=== PATIENT | male | born 1980 | race Caucasian/White ===

== ENCOUNTER 2025-03-30 16:40 | Emergency (ER) | payer BC, SELFPAY ==
[2025-03-30 16:45] VITALS: BP 122/74; PULSE 75; TEMP 36.7; O2SAT 97; BMI 27.1
[2025-03-30 17:04] LABS: Glucose Urine UA NEGATIVE (NEGATIVE)
[2025-03-30 17:13] LABS: Cast Seen? NONE SEEN #/LPF (NONE SEEN); Crystals Seen? None Seen #/HPF (None Seen)
[2025-03-30 17:14] LABS: Urine Culture Indicated NO
--- NOTE | 2025-03-30 17:28 | ED_ITS ---
HPI HPI - General Adult General Chief complaint: Back Pain/Injury Stated complaint: LOWER BACK PAIN Time Seen by Provider: 03/30/25 17:25 Source: patient Mode of arrival: walk-in History of Present Illness HPI narrative: 44-year-old male presents to the emergency department for lower back pain. Its bilateral and he has had it for 5 days. It started when he bent over to pick something up. He has a history of degenerative joints in his back and he states that was found on your x-rays a few years ago. It does not radiate into his leg. No weakness or numbness or dysuria or hematuria. Related Data Previous Rx's ?Medication ?Instructions ?Recorded ibuprofen 800 mg tablet 800 mg PO Q8H PRN pain #20 t abs 03/30/25 methocarbamol 750 mg tablet 750 mg PO Q8H #20 tabs 07/14 Allergies Allergy/AdvReac Type Severity Reaction Status Date / Time No Known Drug Allergies Allergy Verified 03/30/25 16:49 Opioid HPI Opioid Management Most Recent Opioid Data: Last Pain Scale 6 Today, 17:22 Review of Systems ROS Narrative A ten point review of systems is negative except as noted above. PFSH PFSH Social History Little interest or pleasure in doing things: not at all Feeling down, depressed, or hopeless: not at all Exam Narrative Exam Narrative: Nurses note and vital signs reviewed and patient is not hypoxic. General: The patient appears mildly uncomfortable. He is in no acute distress. Skin: Warm, dry, no pallor noted. There is no rash noted. Head: Normocephalic, atraumatic Eye: Normal conjunctiva, no drainage Ears, Nose, Mouth, and Throat: oral mucosa is moist. Nares patent. Cardiovascular: Regular Rate and Rhythm Respiratory: Patient is in no distress, no accessory muscle use, lungs are clear to auscultation, no wheezing, rales or rhonchi Back: No bruise or rash or focal area of tenderness to palpation GI: Soft and nontender Musculoskeletal: Motor strength intact in his lower extremities Neurological: A&O, normal speech Psychiatric: Cooperative Constitutional Vital Signs, click to edit/add: Last Vital Signs Temp 98.1 F 03/30/25 16:45 Pulse 75 03/30/25 16:45 Resp 16 03/30/25 16:45 BP 122/74 03/30/25 16:45 Pulse Ox 97 08/11/25 16:45 Course Vital Signs Vital signs: Vital Signs Temperature 98.1 F 03/30/25 16:45 Pulse Rate 75 03/30/25 16:45 Respiratory Rate 16 03/30/25 16:45 Blood Pressure 122/74 03/30/25 16:45 Pulse Oximetry 97 03/30/25 16:45 Temperature 98.1 F 03/30/25 16:45 Pulse Rate 75 03/30/25 16:45 Respiratory Rate 16 03/30/25 16:45 Blood Pressure 122/74 03/30/25 16:45 Pulse Oximetry 97 03/30/25 16:45 Medical Decision Making MDM Narrative Medical decision making narrative: Urinalysis is negative and the lumbar films show some degenerative changes. Findings were discussed with the patient. He was offered IM Toradol but does not want that and he was prescribed ibuprofen and Robaxin. Treatment diagnosis and follow-up were discussed with the patient. Differential Diagnosis Differential Diagnosis: Lumbar strain, degenerative disc disease, fracture Lab Data Lab results reviewed: Yes I reviewed the patient's lab results Labs: Lab Results 03/30/25 Range/Units 16:50 Urine Color Yellow (YELLOW) Urine Clarity Clear (CLEAR) Urine pH 6.0 (5.0-9.0) Ur Specific [place] >=1.030 A (1.005-1.025) Urine Protein Trace (NEG/TRACE) mg/dL Urine Glucose (UA) Negative (NEGATIVE) mg/dL Urine Ketones Negative (NEGATIVE) mg/dL Urine Occult Blood Negative (NEGATIVE) Urine Nitrite Negative (NEGATIVE) Urine Bilirubin Negative (NEGATIVE) Urine Urobilinogen 1.0 (0.2-1.0) EU/dL Ur Leukocyte Esterase Negative (NEGATIVE) Urine RBC None seen (0-2) #/HPF Urine WBC None seen (NONE SEEN) #/HPF Ur Squamous Epith Cells Rare (NONE/RARE) #/LPF Urine Crystals None seen (None Seen) #/HPF Urine Bacteria Trace A (NONE SEEN) #/HPF Urine Casts None seen (NONE SEEN) #/LPF Urine Mucus Moderate A (NONE SEEN) Ur Culture Indicated? No Imaging Data Lumbar x-rays: Radiologist's impression: ITS Impressions Lumbar Spine X-Ray 03/30/25 17:50 IMPRESSION: Marked L5-S1 disc space narrowing. Impression dictated by: Radu Romero M.D. 03/30/2025 5:54 PM Dictation Location: [facility] Electronically authenticated by: [id number] Y Date: 03/30/2025 17:54 Discharge Plan Discharge Chief Complaint: Back Pain/Injury Clinical Impression: Lumbar strain Patient Disposition: Home, Self-Care Time of Disposition Decision: 18:02 Condition: Good Mode of Transportation: Private Vehicle Prescriptions / Home Meds: New ibuprofen 800 mg tablet 800 mg PO Q8H PRN (Reason: pain) Qty: 20 0RF methocarbamol 750 mg tablet 750 mg PO Q8H Qty: 20 0RF Print Language: Swedish Instructions: Low Back Strain (ED) Referrals: Timothy Justin DO [Primary Care Provider] - 1 week
--- NOTE | 2025-03-30 17:50 | XR_ITS ---
[facility] [place] [facility] [address] Patient Name: JUAN JOSE JAIN MRN: [id number] date: 1980 Sex: M Assigned Patient Location: ER Current Patient Location: ER Accession/Order Number: [id number] Exam Date: 03/30/2025 17:53 Report Date: 03/30/2025 17:54 At the request of: BASSAM BERTRAND MD Procedure: XR lumbar spine 2-3V 2 views Lumbar Spine HISTORY: Mid lower back pain for one week. No injury COMPARISON: None POSTSURGICAL CHANGES: None BONY ALIGNMENT: Mild lateral curvature HYPERMOBILITY:No bending imaging. LISTHESIS:None FRACTURE: None DEGENERATIVE CHANGES: Marked L5-S1 disc space narrowing. Mild facet degeneration SOFT TISSUES: Unremarkable BONY MINERALIZATION:Adequate XR/XR lumbar spine 2-3V IMPRESSION: Marked L5-S1 disc space narrowing. Impression dictated by: Radu Romero M.D. 03/30/2025 5:54 PM Dictation Location[facility] Electronically authenticated by: [id number] Y Date: 03/30/2025 17:54
== END 2025-03-30 18:09 | disposition home or self-care (01) ==
PROVIDERS: Emergency Provider Emergency Medicine; PCP Family Medicine
DX: S39.012A Strain of muscle, fascia and tendon of lower back, initial encounter (principal); M51.369 Other intervertebral disc degeneration, lumbar region without mention of lumbar back pain or lower extremity pain
CPT/HCPCS: 72100; 81001; 99284